=== PATIENT | male | born 1970 | race Caucasian/White ===

== ENCOUNTER 2017-02-24 20:18 | Emergency (ER) | payer SELFPAY ==
[2017-02-24] MEDS ORDERED: Adacel (T-DAP) 0.5 ML VIAL ONE (20:38)
== END 2017-02-24 21:03 | disposition home or self-care (01) ==
LOC: NAV ERS 20:18
DX: S60.551A Superficial foreign body of right hand, initial encounter (principal); G43.909 Migraine, unspecified, not intractable, without status migrainosus; F17.210 Nicotine dependence, cigarettes, uncomplicated; Z23 Encounter for immunization; Z79.899 Other long term (current) drug therapy; W45.8XXA Other foreign body or object entering through skin, initial encounter; Y92.009 Unspecified place in unspecified non-institutional (private) residence as the place of occurrence of the external cause
CPT/HCPCS: 90471; 90715

== ENCOUNTER 2017-07-18 19:23 | Emergency (ER) | payer SELFPAY ==
[2017-07-18] MEDS ORDERED: Lidocaine 1% w/Epinephrine 1:100K 20 ML VIAL ONE (19:40)
[2017-07-18] MEDS ORDERED: Bacitracin Zinc 1 Packet ONE (20:04)
== END 2017-07-18 20:11 | disposition home or self-care (01) ==
LOC: NAV ERS 19:23
DX: S81.812A Laceration without foreign body, left lower leg, initial encounter (principal); F17.210 Nicotine dependence, cigarettes, uncomplicated; Z79.899 Other long term (current) drug therapy; W26.8XXA Contact with other sharp object(s), not elsewhere classified, initial encounter; Y92.69 Other specified industrial and construction area as the place of occurrence of the external cause; Y99.0 Civilian activity done for income or pay
CPT/HCPCS: 12001; J2001